=== PATIENT | male | born 1970 | race Caucasian/White ===

== ENCOUNTER 2022-05-03 17:22 | Inpatient (IN) | payer OTHER, SELFPAY ==
--- NOTE | ~2022-05-03 | US_ITS ---
EXAMINATION: US renal BI DATE: 05/05/2022 09:27 INDICATION: Kidney stones. TECHNIQUE: Multiple grayscale and Doppler ultrasound images of the kidneys were obtained. COMPARISON: CT abdomen and pelvis 05/04/22, 11/05/18 FINDINGS: Right kidney measures 12.7 x 7.0 x 7.4 cm. Left kidney measures 9.1 x 5.4 x 5.1 cm. There i s a 3.0 cm cyst in right kidney. Left kidney demonstrates increased echogenicity, consistent with nep hropathy. There is moderate left hydronephrosis. The bladder is distended. IMPRESSION: 1. Moderate left hydronephrosis. Moderate atrophy of left kidney. Reviewed, dictated and finalized at location A. SPRING TRUER
--- NOTE | ~2022-05-03 | XR_ITS ---
EXAM: XR abdomen/kub 1V DATE: 05/06/2022 18:12 HISTORY: Abd discomfort . COMPARISON: None available. FINDINGS: Clear lung bases. Normal bowel gas pattern. No organomegaly. No abnormal abdominal calcifi cation. Regional bones and soft tissues normal for age. IMPRESSION: No radiographic evidence of obstruction or ileus. Reviewed, dictated and finalized at location K. NE TESTING SUPERVISOR
--- NOTE | ~2022-05-03 | CT_ITS ---
EXAMINATION: CT abdomen pelvis w con DATE: 05/04/2022 02:16 INDICATION: Constipation. Generalized abdominal pain. Nausea. TECHNIQUE: Computed tomography (CT) of the abdomen and pelvis was performed with 100 mL Omnipaque 350 intravenous contrast. Automated exposure control and iterative reconstruction technique were employe d. The dose-length product was 234.22 mGy-cm. COMPARISON: CT abdomen and pelvis 11/05/2018 FINDINGS: The visualized portions of the lung bases demonstrate mild atelectasis. No pleural effusion . The heart size is normal. No pericardial effusion. There is a 7 mm cyst in the liver. The gallbladd er, spleen, pancreas, and adrenal glands are normal. There is a 3.4 cm cyst in right kidney. There is a 3 mm stone in right kidney. There is moderate atrophy of left kidney with decreased contrast nephr ogram. There is a 3 mm stone in left kidney. The bladder is distended. There is an anastomosis in the rectosigmoid. There are no dilated loops of bowel. The appendix is not visualized. There are no path ologically enlarged lymph nodes. There is no free intraperitoneal fluid. There is moderate lumbar spo ndylosis. IMPRESSION: 1. Worsened moderate atrophy of left kidney. 2. Small bilateral nonobstructing kidney stones. Reviewed, dictated and finalized at location A. ENT FITTER
[2022-05-03 18:26] VITALS: BP 147/96; PULSE 88; RESP 16; TEMP 36.8; O2SAT 99
--- NOTE | 2022-05-03 23:02 | PC.NURSE ---
called at this time with no answer
--- NOTE | 2022-05-03 23:13 | PC.NURSE ---
patient returned to from outside stating im already on the list patient notified that he had been called for a room and was unable to be found so he was skipped in line. patient upset but educated patient that we request that patient stays in ed for this reason as we will not go out to parking lot to look for him
[2022-05-04 00:48] VITALS: BP 152/99; PULSE 75; RESP 17; TEMP 36.4; O2SAT 100
--- NOTE | 2022-05-04 01:02 | ED.ABDPAIN ---
HPI - Abdominal Pain General Chief Complaint: Abdominal Pain Stated Complaint: abd pain Time Seen by Provider: 05/04/22 00:46 Source: RN notes reviewed History of Present Illness HPI narrative: Patient presents emergency department from home for abdominal pain. Patient states he been having nausea abdominal pain for approximately the past 1 week. States abdominal pain is diffuse throughout the abdomen described as cramping but is worse in the bilateral lower abdomen. States has been associate with constipation. He states he has not had good bowel movements over the past several years and has been taking increased laxatives over the past several weeks with minimal bowel movements he denies any fevers or chills denies any nausea or vomiting states he is also concerned as he has a history of hernias and is concerned that this could be causing his bowel issues Related Data Home Medications Medication Instructions Recorded Confirmed clonazepam 0.5 mg tablet 0.5 mg PO QID 05/19/19 05/19/19 dextroamphetamine-amphetamine 20 20 mg PO BID 05/19/19 05/19/19 mg tablet finasteride 5 mg tablet 5 mg PO DAILY 05/19/19 05/19/19 gabapentin 300 mg capsule 300 mg PO BID 05/19/19 05/19/19 insulin human U-100 NPH-regulr 20 unit subcut DAILY 05/19/19 05/19/19 70-30 mix 100 unit/mL subcutaneous susp (Novolin 70/30 U-100 Insulin) levothyroxine 125 mcg tablet 150 mcg PO DAILY 05/19/19 05/19/19 metformin 1,000 mg tablet 1,000 mg PO BID 05/19/19 05/19/19 tamsulosin 0.4 mg capsule 0.4 mg PO DAILY 05/19/19 05/19/19 triamterene 75 1 tablet PO DAILY 05/19/19 05/19/19 mg-hydrochlorothiazide 50 mg tablet Allergies Allergy/AdvReac Type Severity Reaction Status Date / Time Sulfa (Sulfonamide Allergy Unknown Unknown Verified 05/04/22 00:49 Antibiotics) Review of Systems Review of Systems: Gen.: Denies fevers or chills ENT: Denies congestion Respiratory: Denies shortness of breath or cough CV: Denies chest pain or palpitations GI: See HPI denies burning, urgency, frequency or hematuria Musculoskeletal: Denies back pain or muscle pain Neuro: Denies numbness, tingling, weakness or focal weakness Skin: Denies rash Except as documented, all other systems reviewed and negative [facility] Past Medical History Medical History (Updated 05/04/22 @ 05:36 by Syed Feng DO) Anemia Anxiety Colon cancer Depression Diabetes Hepatitis B Hepatitis C Hypothyroid Inguinal hernia double Psoriatic arthritis Urinary retention Surgical History Surgical History History of colon resection Social History Social History Smoking packs per day: 1 Smoking cigarettes per day: 20.0 Years smoked: 32 Smoking pack-years: 32.00 Smoking status: Current every day smoker Tobacco type: cigarettes Alcohol intake: never Substance use: never Substance use type: does not use Gender identity (if verbalized by the patient): Male Spiritual care concerns: No Agree to blood products: Yes Exam Narrative: APPEARANCE: No acute distress, nontoxic, resting in bed EYES: EOMI HEENT: Normocephalic, atraumatic, OMM RESPIRATORY: No respiratory distress Clear to auscultation bilaterally with no rhonchi wheezing or rales. CARDIOVASCULAR: Regular rate and rhythm without murmurs rubs or gallops. ABDOMINAL: Soft, nondistended diffusely tender to palpation no rebound or guarding MUSCULOSKELETAl: Moves all extremities. No clubbing, cyanosis or edema. NEURO: Awake and alert. Following commands, speech normal, no focal deficits SKIN:: Warm, dry. No rashes lesions or abrasions PSYCHIATRIC: Normal affect/mood, Course Course Emergency Course: Discussed with patient his elevated blood sugars. States he does not regularly take his blood sugar at home states he is on insulin but takes it without checking his blood sugar states he is no longer
[2022-05-04] MEDS: SODIUM CHLORIDE 0.9% IV 1,000 ML 999 ML IV CONT ×2 (01:24→01:51)
[2022-05-04] MEDS: KETOROLAC 30 MG/ML VIAL (*BKC) IV PUSH (01:24)
[2022-05-04 01:28] LABS: Basophils Absolute Auto 0.1 K/mm3 (0.0-0.1); Basophils Percent Auto 0.6 % (0.2-1.2); Eosinophils Absolute Auto 0.2 K/mm3 (0-0.3); Eosinophils Percent Auto 2.4 % (0-4.4); Hematocrit 36.3 % (42.0-52.0); Hemoglobin 12.9 g/dL (14.0-18.0); Immature Granulocyte Absolute 0.04 K/mm3 (0.00-0.031); Immature Granulocyte Percent A 0.5 % (0-0.5); Lymphocytes Absolute Auto 2.05 K/mm3 (0.9-3.2); Lymphocytes Percent Auto 26.2 % (18.3-44.2); Mean Corpuscular HGB Conc 35.5 g/dl (32-36); Mean Corpuscular Hemoglobin 30.4 pg (26-34); Mean Corpuscular Volume 85.6 fl (80-100); Mean Platelet Volume 9.6 fl (7.4-10.4); Monocytes Absolute Auto 0.6 K/mm3 (0.1-0.6); Monocytes Percent Auto 7.4 % (2.6-8.5); Neutrophils Absolute Auto 4.9 K/mm3 (1.3-6.7); Neutrophils Percent Auto 62.9 % (45.5-73.1); Platelet Count Result 263 k/mm3 (150-375); Red Blood Count 4.24 M/mm3 (4.6-6.20); Red Cell Distribution Width 12.7 % (11.5-14.5); White Blood Count 7.8 K/mm3 (4.5-10.0)
[2022-05-04 01:44] LABS: Alanine Aminotransferase 84 U/L (6-50); Alkaline Phosphatase 97 U/L (38-126); Anion Gap 4 mmol/L (8-16); Aspartate Amino Transferase 60 U/L (17-59); Bilirubin,Total 0.8 mg/dL (0.2-1.3); Blood Urea Nitrogen 15 mg/dL (9-20); Calcium 8.5 mg/dL (8.4-10.2); Carbon Dioxide 30 mmol/L (22-30); Chloride 92 mmol/L (98-107); Estimated CRCL calculation 78 ml/min; Estimated Glomerular Filt Rate > 60; Glucose 512 mg/dL (65-110); Lipase 42 U/L (23-300); Potassium 4.3 mmol/L (3.4-5.0); Sodium 126 mmol/L (137-145)
--- NOTE | 2022-05-04 02:00 | PC.NURSE ---
Patient taken to CT via stretcher at this time.
[2022-05-04 03:39] VITALS: BP 152/101; PULSE 70; RESP 17; O2SAT 100
[2022-05-04 03:39] LABS: Add Urine Microscopic? YES; Appearance Urine Clear (Clear); Bilirubin Urine Negative (Negative); Blood Urine Negative (Negative); Color Urine Yellow (Yellow); Glucose Urine UA 3+ mg/dL (Negative); Ketones Urine Negative (Negative); Leukocyte Esterase Ur Negative LEU/UL (Negative); Nitrate Urine Negative (Negative); Protein Urine Negative (Negative); Specific Grav Ur <= 1.005 (1.001-1.035); Urobilinogen Urine 0.2 mg/dL (<2.0)
--- NOTE | 2022-05-04 03:45 | PC.NURSE ---
Bedside glucose is 439.
[2022-05-04 03:47] LABS: Glucose Point of Care 439 mg/dl (65-105)
[2022-05-04 04:12] LABS: Influenza A QL RT-PCR Negative (Negative); Influenza B QL RT-PCR Negative (Negative); SARS-CoV-2 RNA PCR Negative
[2022-05-04 04:16] LABS: RBC Urine 0-2 /hpf (0-2)
--- NOTE | 2022-05-04 05:23 | PC.NURSE ---
Patient bedside glucose is 444.
[2022-05-04 05:25] LABS: Glucose Point of Care 444 mg/dl (65-105)
[2022-05-04] MEDS: INSULIN ASPART (*BKC) 100 UNITS/ML 8 UNITS SUB-Q (05:30)
[2022-05-04] MEDS: MORPHINE SULFATE (*CRX) 2 MG/ML INJ IV PUSH (05:36)
[2022-05-04 06:03] VITALS: BP 161/102; PULSE 63; RESP 18; O2SAT 100
--- NOTE | 2022-05-04 06:15 | ADMGEN ---
This patient, Syed Foster, was admitted to [address] [facility] Surg Room 315-02. Patient/family oriented to hospital policies and general routines including ID bracelet, bed and alarms, visiting hours, pain management, procedures, bathroom and other care routines, personal items, smoking policy, room service/diet, and visiting hours. Information on how to activate the Rapid Response Team has been discussed. Patient/Family are encouraged to report perceived risks to care and to ask questions if they do not understand what they are told or what they should do.
[2022-05-04 06:18] VITALS: BMI 23.6
[2022-05-04 06:31] VITALS: BP 168/105; PULSE 77; RESP 18; TEMP 36.3; O2SAT 100
[2022-05-04] MEDS: SODIUM CHLORIDE 0.9% IV 1,000 ML 125 ML IV CONT ×2 (06:50→16:51)
[2022-05-04 08:23] LABS: Glucose Point of Care 304 mg/dl (65-105)
--- NOTE | 2022-05-04 09:30 | PM.IMHP ---
H&P: HPI History of Present Illness Date/Time: 05/04/22 2918 Chief Complaint: abdominal pain and CVA pain Narrative: patient is a 52-year-old male with a past medical history of colon cancer, diabetes, hypothyroidism, urinary retention who presented to the ED with complaints of abdominal pain radiating to his flank. Patient stated that it all started about 4 days ago. He stated that the pain started in his lower abdomen however was radiating to his flank pain into the CVA area. 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 he stated that the pain was doing okay and he was able to rest and the pain would go way however when he would start to move it would exacerbated more. He was able to get a couple pain pills from a friend of his however they were not effective. Patient also noted that he had not had a bowel movement in 14 days prior to yesterday. He did state that he was able to have a bowel movement yesterday however he just feels very full again today. He noted that he does have 2-3 bowel movements per day. He also stated that he has been having a lot of nausea with no vomiting. He denies any sweats, fevers, chills or chest pain. He did state that he gets short of breath however it does not seem the shortness of breath is anything on normal for him. He also stated that he has been get lightheaded and dizzy lately however he stated it is more so when he stands up too fast. He denies having any urinary issues he did state that he does dribble from time to time and he also stated that he does run back to the bathroom a lot of the times as well. CT of the abdomen and pelvis did show distended bladder along with nonobstructing kidney stones. Did a consult Urology with current findings. Post residual void from nursing was 255 after 350 void. Patient is also very tender with palpation on the bilateral lower quadrants of his abdomen. Glucose upon admission was 512. Patient does have some concern about his glucose however stated that his medications have been recently changed about 2 weeks ago. He also stated that he has always taken hypothyroidism medicine however it was stopped cold turkey About a month ago. Patient is being admitted to the hospitalist service as observation Review of Systems Review of Systems: All systems reviewed & are unremarkable except as noted in HPI and below PMFSH Past Medical History Medical History Acute hyperglycemia Acute hyperkalemia Acute hyponatremia Anemia Anxiety Colon cancer COPD (chronic obstructive pulmonary disease) Depression Diabetes Hepatitis B Hepatitis C Hypothyroid Inguinal hernia double Psoriatic arthritis Urinary retention Surgical History Surgical History History of colon resection Family History Family History Father Marfan syndrome Grandparent Cerebrovascular accident Other Acute myocardial infarction maternal uncle Cancer multiple family members with cancer throughout the family Social History Social History (Updated 05/04/22 @ 14:02 by ZACH Acosta) Social History: patient lives with a friend and his girlfriend. Patient does have 4-5 kids and does have a pit bull at home. He elects his mother Lorena to be his surrogate. patient does partake in illegal drugs and stated that he does what ever is available at that time. Patient wishes to be a full code at this time Smoking packs per day: 1 Smoking cigarettes per day: 20.0 Years smoked: 37 Smoking pack-years: 37.00 Smoking status: Current every day smoker Tobacco type: cigarettes Alcohol intake: never Substance use: current Substance use type: marijuana, crack/cocaine, amphetamines, hallucinogens, opiates, painkillers and other Last use: 05/02/22 speed
[2022-05-04] MEDS: clonazePAM (*CRX) 0.5 MG TABLET PO ×4 (09:55→20:50)
[2022-05-04] MEDS: GABAPENTIN 300 MG CAPSULE PO ×3 (09:57→17:06)
[2022-05-04] MEDS: LOSARTAN POTASSIUM 25 MG TABLET PO (09:57)
[2022-05-04] MEDS: INSULIN ASPART (*BKC) 100 UNITS/ML SUB-Q ×2 (09:57→17:07)
[2022-05-04] MEDS: FINASTERIDE 5 MG TABLET PO (09:57)
[2022-05-04] MEDS: TAMSULOSIN HCL 0.4 MG CAPSULE PO (09:57)
[2022-05-04 11:10] LABS: Hemoglobin A1C 13.7 % (<5.7)
[2022-05-04 11:25] LABS: Hepatitis B Surface Antigen Negative (Negative)
[2022-05-04 11:31] LABS: HAV RESULT Negative (Negative); Hepatitis B Core IgM Result Negative (Negative)
[2022-05-04 12:02] LABS: Hepatitis C Virus Antibody Reactive (Negative)
[2022-05-04] MEDS: MORPHINE SULFATE (*CRX) 2 MG/ML INJ 1 MG IV PUSH (12:04)
[2022-05-04 12:08] LABS: Glucose Point of Care 194 mg/dl (65-105)
[2022-05-04 12:15] LABS: Creatinine Urine 36.3 mg/dL; Urea Random Urine 257 MG/DL
[2022-05-04 12:20] LABS: Barbiturate Screen Urine Negative (Negative); Benzodiazepines Screen Urine Negative (Negative); Sodium Urine Random 219 meq/L
[2022-05-04 12:22] LABS: Cannabinoid Screen Urine Positive (Negative); Cocaine Screen Urine Negative (Negative); Methadone Screen Urine Negative (Negative); Opiate Screen Urine Positive (Negative); Phencyclidine Screen Urine Negative (Negative)
[2022-05-04 12:53] LABS: Amphetamine Screen Urine Positive (Negative)
--- NOTE | 2022-05-04 13:59 | WPDUROPN2 ---
Progress Note: A&P Assessment and Plan (1) BPH (benign prostatic hyperplasia): Code(s): N40.0 - Benign prostatic hyperplasia without lower urinary tract symptoms Status: Acute Assessment and Plan: 52M with BPH and uncontrolled diabetes admitted for abdominal pain consulted for PVR above 200 though he did void 350 and small nonobstructing kidney stones. Cr 1, A1C over 13. UA with no signs of infection. - Recommend continuing to monitor patient's PVR and is voiding. If PVR is over 250-300, or if patient unable to void for over 4-6 hours would have a low threshold to consider lord catheter placement for retention with a 18F coude catheter. - No intervention required for small nonobstructing renal stones and chronic atrophic kidney. Subjective Subjective Date/Time Seen: 05/04/22 13:59 Objective Data Vital Signs Vital Signs: Vital Signs - 24 hr 05/03/22 18:26 05/04/22 00:48 05/04/22 03:39 Temperature 36.8 C 36.4 C Pulse Rate 88 75 70 Respiratory Rate 16 17 17 Blood Pressure 147/96 H 152/99 H 152/101 H Pulse Oximetry 99 100 100 Oxygen Delivery Room Air 05/04/22 06:03 05/04/22 06:31 05/04/22 08:20 Temperature 36.3 C L Pulse Rate 63 77 Respiratory Rate 18 18 Blood Pressure 161/102 H 168/105 H Pulse Oximetry 100 100 Oxygen Delivery Room Air Intake/Output Intake/Output: Intake & Output 05/01/22 05/02/22 05/03/22 05/04/22 23:59 23:59 23:59 23:59 Intake Total 2360 Balance 2360 Meds/Results Medications: Active Medications Generic Name Dose Route Start Last Admin Trade Name Freq PRN Reason Stop Dose Admin Acetaminophen 1,000 mg 05/04/22 09:28 Acetaminophen 500 Mg Tablet PO Q6H PRN Mild Pain (1-3) or Fever Hydrocodone Bitart/Acetaminophen 1 tab 05/04/22 09:28 Hydrocodone/Acetaminophen (*Crx) 5-325 Mg Tablet PO Q6H PRN Pain Rated 4-6 Clonazepam 0.5 mg 05/04/22 09:00 05/04/22 13:43 Clonazepam (*Crx) 0.5 Mg Tablet PO 0.5 mg QID KENIA Administration Dextrose 12.5 gm 05/04/22 09:28 Dextrose 50% 25 Gm/50 Ml Syringe IV PUSH PRN PRN Hypoglycemia Protocol Finasteride 5 mg 05/04/22 09:00 05/04/22 09:57 Finasteride 5 Mg Tablet PO 5 mg DAILY KENIA Administration Gabapentin 300 mg 05/04/22 09:00 05/04/22 13:42 Gabapentin 300 Mg Capsule PO 300 mg TID KENIA Administration Glucagon 1 mg 05/04/22 09:28 Glucagon For Inj 1 Mg Vial IM PRN PRN Hypoglycemia Protocol Glucose 15 gm 05/04/22 09:28 Glucose Oral Gel 15 Gm Of Glucse In 37.5 Gm Tube PO PRN PRN Hypoglycemia Protocol Hydralazine HCl 10 mg 05/04/22 09:28 Hydralazine Hcl 20 Mg/Ml Vial IV PUSH Q8H PRN Blood Pressure - High Sodium Chloride 1,000 mls @ 125 mls/hr 05/04/22 05:30 05/04/22 06:51 Normal Saline Iv IV CONT 125 mls/hr .Q8H KENIA Infusion Dextrose 1,000 mls @ 100 mls/hr 05/04/22 09:28 Dextrose 5% 1,000 Ml IVPB PRN PRN Hypoglycemia Protocol Insulin Aspart 4 - 8 units 05/04/22 12:00 05/04/22 12:07 Insulin Aspart (*Bkc) 100 Units/Ml SUB-Q Not Given TIDWM [facility] Protocol Insulin Glargine 25 units 05/04/22 21:00 Insulin Glargine (*Bkc) 100 Units/Ml SUB-Q HS [facility] Insulin Human NPH 11 units 05/04/22 16:30 Insulin Human Nph (*Bkc) 100 Units/Ml 0.15 units/kg (11 units) SUB-Q BIDAC KENIA Losartan Potassium 25 mg 05/04/22 09:00 05/04/22 09:57 Losartan Potassium 25 Mg Tablet PO 25 mg DAILY KENIA Administration Morphine Sulfate 1 mg 05/04/22 09:28 05/04/22 12:04 Morphine Sulfate (*Crx) 2 Mg/Ml Inj IV PUSH 1 mg Q4H PRN Administration Pain Rated 7-10 Sitagliptin Phosphate 100 mg 05/04/22 09:00 05/04/22 09:57 Sitagliptin 100 Mg Tablet PO 100 mg DAILY KENIA Administration Tamsulosin HCl 0.4 mg 05/04/22 09:00 05/04/22 09:57 Tamsulosin Hcl 0.4 Mg Capsule PO 0.4 mg DAILY KENIA Admin
[2022-05-04 14:07] VITALS: BP 125/82; PULSE 77; RESP 18; TEMP 36.6; O2SAT 99
[2022-05-04 15:31] VITALS: BMI 23.6
[2022-05-04] MEDS: INSULIN HUMAN NPH (*BKC) 100 UNITS/ML 11 UNITS SUB-Q (17:03)
[2022-05-04] MEDS: SIMETHICONE 80 MG TAB.CHEW PO ×2 (17:11→20:50)
[2022-05-04 17:21] LABS: Glucose Point of Care 318 mg/dl (65-105)
[2022-05-04] MEDS: INSULIN GLARGINE (*BKC) 100 UNITS/ML 25 UNITS SUB-Q (20:50)
[2022-05-04 20:52] LABS: Glucose Point of Care 171 mg/dl (65-105)
[2022-05-04 21:46] VITALS: BP 135/96; PULSE 73; RESP 14; TEMP 36.2; O2SAT 12
[2022-05-05] MEDS: SODIUM CHLORIDE 0.9% IV 1,000 ML 125 ML IV CONT ×3 (00:58→19:45)
[2022-05-05 05:49] VITALS: BP 139/89; PULSE 66; RESP 14; TEMP 36.2; O2SAT 98
[2022-05-05 06:43] LABS: Basophils Absolute Auto 0.1 K/mm3 (0.0-0.1); Basophils Percent Auto 0.5 % (0.2-1.2); Eosinophils Absolute Auto 0.3 K/mm3 (0-0.3); Eosinophils Percent Auto 2.7 % (0-4.4); Hematocrit 38.4 % (42.0-52.0); Immature Granulocyte Absolute 0.07 K/mm3 (0.00-0.031); Immature Granulocyte Percent A 0.6 % (0-0.5); Lymphocytes Percent Auto 17.4 % (18.3-44.2); Mean Corpuscular HGB Conc 36.5 g/dl (32-36); Mean Corpuscular Hemoglobin 30.2 pg (26-34); Mean Corpuscular Volume 82.8 fl (80-100); Mean Platelet Volume 9.4 fl (7.4-10.4); Monocytes Absolute Auto 0.8 K/mm3 (0.1-0.6); Monocytes Percent Auto 6.6 % (2.6-8.5); Neutrophils Absolute Auto 9.1 K/mm3 (1.3-6.7); Neutrophils Percent Auto 72.2 % (45.5-73.1); Platelet Count Result 265 k/mm3 (150-375); Red Blood Count 4.64 M/mm3 (4.6-6.20); Red Cell Distribution Width 12.6 % (11.5-14.5); White Blood Count 12.6 K/mm3 (4.5-10.0)
[2022-05-05 06:54] LABS: Alanine Aminotransferase 76 U/L (6-50); Albumin Level 3.4 g/dL (3.5-5.1); Alkaline Phosphatase 87 U/L (38-126); Anion Gap 2 mmol/L (8-16); Aspartate Amino Transferase 56 U/L (17-59); Bilirubin,Total 0.7 mg/dL (0.2-1.3); Blood Urea Nitrogen 10 mg/dL (9-20); Calcium 8.3 mg/dL (8.4-10.2); Carbon Dioxide 29 mmol/L (22-30); Chloride 99 mmol/L (98-107); Estimated CRCL calculation 96 ml/min; Estimated Glomerular Filt Rate > 60; Glucose 91 mg/dL (65-110); Magnesium 1.7 mg/dL (1.6-2.3); Potassium 3.5 mmol/L (3.4-5.0); Sodium 130 mmol/L (137-145)
[2022-05-05 08:12] LABS: Glucose Point of Care 133 mg/dl (65-105)
[2022-05-05] MEDS: INSULIN HUMAN NPH (*BKC) 100 UNITS/ML 11 UNITS SUB-Q (08:21)
[2022-05-05] MEDS: FINASTERIDE 5 MG TABLET PO (08:24)
[2022-05-05] MEDS: GABAPENTIN 300 MG CAPSULE PO ×3 (08:24→17:10)
[2022-05-05] MEDS: TAMSULOSIN HCL 0.4 MG CAPSULE PO (08:24)
[2022-05-05] MEDS: LOSARTAN POTASSIUM 25 MG TABLET PO (08:24)
[2022-05-05] MEDS: clonazePAM (*CRX) 0.5 MG TABLET PO ×4 (08:26→19:53)
[2022-05-05] MEDS: SIMETHICONE 80 MG TAB.CHEW PO ×4 (08:26→19:53)
[2022-05-05 08:34] LABS: Free T4 Free Thyroxine Reflex 0.37 ng/dL (0.78-2.19)
[2022-05-05] MEDS: LEVOTHYROXINE SODIUM 100 MCG TABLET PO (11:27)
--- NOTE | 2022-05-05 11:30 | PM.IMPN ---
Progress Note: A&P Assessment and Plan (1) Acute hyponatremia: Code(s): E87.1 - Hypo-osmolality and hyponatremia Status: Acute Assessment and Plan: sodium 126 upon admission, however corrected sodium was 133-136 Current sodium today is 130 normal saline at 125 mils an hour Continue to trend labs only increased by 6 points ever 24 hour. urine sodium 219 Hold HCTZ for now (2) Hydronephrosis: Code(s): N13.30 - Unspecified hydronephrosis Status: Acute Assessment and Plan: renal ultrasound did show some left hydronephrosis could be from the atrophy consider placement of urinary catheter urology consulted PRV ordered BID (3) Diabetes: Code(s): E11.9 - Type 2 diabetes mellitus without complications Status: Acute Assessment and Plan: Glucose on arrival 512 Currenly 91 NPH given along with aspart 05/04/22 Accu cheks, ISS, hypoglycemia protocol Trend labs continue lantus 25 units at HS Start aspart 8 units with meals Continue home Januvia Patient also reported taking the detemir 30 units BID not once a day (4) Abdominal pain, lower: Code(s): R10.30 - Lower abdominal pain, unspecified Status: Acute Assessment and Plan: abdomen and pelvis CT does showed nonobstructing kidney stones, distended bladder reported significant constipation Start Miralax and Colace CT also shows a lot of gas, start simethicone Pain medications on board Bladder was also noted to be distended could be contributing (5) BPH (benign prostatic hyperplasia): Code(s): N40.0 - Benign prostatic hyperplasia without lower urinary tract symptoms Status: Acute Assessment and Plan: CT noted bladder distension Continue home tamsulosin and finasteride Urology consulted Trend urine output PRV was 255ml after a 300ml void PRV ordered BID Urology instructed low threshold for a urinary catheter consider catheter if indicated (6) Kidney stones: Code(s): N20.0 - Calculus of kidney Status: Acute Assessment and Plan: CT noted bilateral kidney stones Urology consulted for further support Continue to trend urine output Adjust therapy as indicated (7) Hypothyroid: Qualifiers: Hypothyroidism type: unspecified Qualified Code(s): E03.9 - Hypothyroidism, unspecified Code(s): E03.9 - Hypothyroidism, unspecified Status: Chronic Assessment and Plan: TSH 95.800, T4 0.37 Will start medications at 100mcg per day will need a recheck in 6 weeks (8) Hypertension: Code(s): I10 - Essential (primary) hypertension Status: Acute Assessment and Plan: Current BP is 139/89 Holding the HCTZ for hyponatremia Hydralazine PRN Trend BP Adjust therapy as indicated (9) Tobacco dependence: Code(s): F17.200 - Nicotine dependence, unspecified, uncomplicated Status: Acute Assessment and Plan: Patch and gum available Smoking cessation provided Time Spent With Patient Time with patient: Greater than 35 minutes Subjective Date/time seen: 05/05/221129 Interval history: 05/05/221129 Patient stated that he is doing the same. He also stated that his urination has been little different as well. He stated that his stream is not as strong however he is still getting some of the urine out. He still complaining of abdominal pain and flank pain which she rates at 8/10. He denies any chest pain or shortness of breath, nausea vomiting. He denies having a bowel movement yet have started him on stool softeners. He also claims that he is passing gas but not that much. Will get another PRV for further assessment of retention. 05/04/22? 3330 ?patient is a 52-year-old male with a past medical history of colon cancer, diabete
--- NOTE | 2022-05-05 11:30 | P.PNIM_ITS ---
Progress Note: A&P Assessment and Plan (1) Acute hyponatremia: Code(s): E87.1 - Hypo-osmolality and hyponatremia Status: Acute Assessment and Plan: * sodium 126 upon admission, however corrected sodium was 133-136 * Current sodium today is 130 * normal saline at 125 mils an hour * Continue to trend labs * only increased by 6 points ever 24 hour. * urine sodium 219 * Hold HCTZ for now (2) Hydronephrosis: Code(s): N13.30 - Unspecified hydronephrosis Status: Acute Assessment and Plan: * renal ultrasound did show some left hydronephrosis * could be from the atrophy * consider placement of urinary catheter * urology consulted * PRV ordered BID (3) Diabetes: Code(s): E11.9 - Type 2 diabetes mellitus without complications Status: Acute Assessment and Plan: * Glucose on arrival 512 * Currenly 91 * NPH given along with aspart 05/04/22 * Accu cheks, ISS, hypoglycemia protocol * Trend labs * continue lantus 25 units at HS * Start aspart 8 units with meals * Continue home Januvia * Patient also reported taking the detemir 30 units BID not once a day (4) Abdominal pain, lower: Code(s): R10.30 - Lower abdominal pain, unspecified Status: Acute Assessment and Plan: * abdomen and pelvis CT does showed nonobstructing kidney stones, distended bladder * reported significant constipation * Start Miralax and Colace * CT also shows a lot of gas, start simethicone * Pain medications on board * Bladder was also noted to be distended could be contributing (5) BPH (benign prostatic hyperplasia): Code(s): N40.0 - Benign prostatic hyperplasia without lower urinary tract symptoms Status: Acute Assessment and Plan: * CT noted bladder distension * Continue home tamsulosin and finasteride * Urology consulted * Trend urine output * PRV was 255ml after a 300ml void * PRV ordered BID * Urology instructed low threshold for a urinary catheter * consider catheter if indicated (6) Kidney stones: Code(s): N20.0 - Calculus of kidney Status: Acute Assessment and Plan: * CT noted bilateral kidney stones * Urology consulted for further support * Continue to trend urine output * Adjust therapy as indicated (7) Hypothyroid: Qualifiers: Hypothyroidism type: unspecified Qualified Code(s): E03.9 - Hypothyroidism, unspecified Code(s): E03.9 - Hypothyroidism, unspecified Status: Chronic Assessment and Plan: * TSH 95.800, T4 0.37 * Will start medications at 100mcg per day * will need a recheck in 6 weeks (8) Hypertension: Code(s): I10 - Essential (primary) hypertension Status: Acute Assessment and Plan: * Current BP is 139/89 * Holding the HCTZ for hyponatremia * Hydralazine PRN * Trend BP * Adjust therapy as indicated (9) Tobacco dependence: Code(s): F17.200 - Nicotine dependence, unspecified, uncomplicated Status: Acute Assessment and Plan: * Patch and gum available * Smoking cessation provided Time Spent With Patient Time with patient: Greater than 35 minutes Subjective Date/time seen:
[2022-05-05 11:50] LABS: Glucose Point of Care 79 mg/dl (65-105)
[2022-05-05] MEDS: HYDROcodone/acetaminophen (*CRX) 5-325 MG TABLET 1 TAB PO (11:57)
[2022-05-05 14:00] VITALS: BP 134/91; PULSE 69; RESP 16; TEMP 36.6; O2SAT 99
[2022-05-05 17:12] LABS: Glucose Point of Care 63 mg/dl (65-105)
[2022-05-05 18:01] LABS: Glucose Point of Care 109 mg/dl (65-105)
[2022-05-05] MEDS: MORPHINE SULFATE (*CRX) 2 MG/ML INJ 1 MG IV PUSH (19:53)
[2022-05-05] MEDS: INSULIN GLARGINE (*BKC) 100 UNITS/ML 25 UNITS SUB-Q (19:53)
[2022-05-05 20:03] LABS: Glucose Point of Care 159 mg/dl (65-105)
[2022-05-05 22:00] VITALS: BP 120/97; PULSE 96; RESP 18; TEMP 36.1; O2SAT 100
[2022-05-05 23:29] VITALS: O2SAT 99
[2022-05-06] MEDS: MORPHINE SULFATE (*CRX) 2 MG/ML INJ 1 MG IV PUSH ×3 (00:19→18:09)
[2022-05-06] MEDS: SODIUM CHLORIDE 0.9% IV 1,000 ML 125 ML IV CONT ×2 (05:17→13:22)
[2022-05-06] MEDS: LEVOTHYROXINE SODIUM 100 MCG TABLET PO (05:17)
--- NOTE | 2022-05-06 05:50 | PC.NURSE ---
Pt. has voided without telling nursing staff that he voided. Pt. educated twice on the importance of telling nursing staff he voided so he can be bladder scanned for PVR.
[2022-05-06 06:00] VITALS: BP 149/99; PULSE 71; RESP 16; TEMP 36.7; O2SAT 99
[2022-05-06 06:34] LABS: Basophils Absolute Auto 0.1 K/mm3 (0.0-0.1); Basophils Percent Auto 0.6 % (0.2-1.2); Eosinophils Absolute Auto 0.4 K/mm3 (0-0.3); Eosinophils Percent Auto 4.6 % (0-4.4); Hematocrit 38.8 % (42.0-52.0); Hemoglobin 13.7 g/dL (14.0-18.0); Immature Granulocyte Absolute 0.05 K/mm3 (0.00-0.031); Immature Granulocyte Percent A 0.5 % (0-0.5); Lymphocytes Absolute Auto 2.43 K/mm3 (0.9-3.2); Lymphocytes Percent Auto 25.7 % (18.3-44.2); Mean Corpuscular HGB Conc 35.3 g/dl (32-36); Mean Corpuscular Hemoglobin 30.3 pg (26-34); Mean Corpuscular Volume 85.8 fl (80-100); Mean Platelet Volume 9.6 fl (7.4-10.4); Monocytes Absolute Auto 0.7 K/mm3 (0.1-0.6); Monocytes Percent Auto 7.7 % (2.6-8.5); Neutrophils Absolute Auto 5.7 K/mm3 (1.3-6.7); Neutrophils Percent Auto 60.9 % (45.5-73.1); Platelet Count Result 255 k/mm3 (150-375); Red Blood Count 4.52 M/mm3 (4.6-6.20); Red Cell Distribution Width 12.7 % (11.5-14.5); White Blood Count 9.4 K/mm3 (4.5-10.0)
[2022-05-06 06:52] LABS: Alanine Aminotransferase 80 U/L (6-50); Albumin Level 3.7 g/dL (3.5-5.1); Alkaline Phosphatase 83 U/L (38-126); Anion Gap 2 mmol/L (8-16); Aspartate Amino Transferase 76 U/L (17-59); Bilirubin,Total 0.7 mg/dL (0.2-1.3); Blood Urea Nitrogen 13 mg/dL (9-20); Calcium 8.6 mg/dL (8.4-10.2); Carbon Dioxide 32 mmol/L (22-30); Chloride 100 mmol/L (98-107); Estimated CRCL calculation 78 ml/min; Estimated Glomerular Filt Rate > 60; Glucose 176 mg/dL (65-110); Magnesium 1.8 mg/dL (1.6-2.3); Potassium 4.6 mmol/L (3.4-5.0); Sodium 134 mmol/L (137-145)
[2022-05-06 08:26] LABS: Glucose Point of Care 226 mg/dl (65-105)
[2022-05-06] MEDS: GABAPENTIN 300 MG CAPSULE PO ×3 (08:50→17:11)
[2022-05-06] MEDS: clonazePAM (*CRX) 0.5 MG TABLET PO ×4 (08:51→20:45)
[2022-05-06] MEDS: FINASTERIDE 5 MG TABLET PO (08:51)
[2022-05-06] MEDS: INSULIN ASPART (*BKC) 100 UNITS/ML SUB-Q ×3 (08:51→17:10)
[2022-05-06] MEDS: TAMSULOSIN HCL 0.4 MG CAPSULE PO (08:51)
[2022-05-06] MEDS: SIMETHICONE 80 MG TAB.CHEW PO ×4 (08:51→20:40)
[2022-05-06] MEDS: LOSARTAN POTASSIUM 25 MG TABLET PO (08:51)
[2022-05-06] MEDS: HYDROcodone/acetaminophen (*CRX) 5-325 MG TABLET 1 TAB PO ×2 (08:57→20:45)
[2022-05-06 10:30] VITALS: BMI 23.6
[2022-05-06 11:43] LABS: Glucose Point of Care 197 mg/dl (65-105)
[2022-05-06 13:59] VITALS: BP 141/95; PULSE 71; RESP 16; TEMP 36.8; O2SAT 100
[2022-05-06 15:03] LABS: Osmolality, Urine 668 mOsm/kg (50-1200)
--- NOTE | 2022-05-06 16:38 | PM.IMPN ---
Progress Note: A&P Assessment and Plan (1) Abdominal pain, lower: Code(s): R10.30 - Lower abdominal pain, unspecified Status: Acute Assessment and Plan: patient complains of severe lower abdominal pain. CT of the abdomen/ pelvis reviewed on small bilateral nonobstructing kidney stones, no dilated loops of bowel, no lymphadenopathy or free fluid. nonobstructing stones not likely to be etiology for pain. No additional findings to explain symptoms on CT. Patient does complain of constipation, therefore will begin bowel regimen. Will evaluate abdominal x-ray (2) Hydronephrosis: Code(s): N13.30 - Unspecified hydronephrosis Status: Acute Assessment and Plan: renal ultrasound revealed moderate left hydronephrosis and moderate atrophy of left kidney. Appreciate urology consultation. Continue to monitor postvoid residual. (3) Diabetes: Code(s): E11.9 - Type 2 diabetes mellitus without complications Status: Acute Assessment and Plan: Poorly controlled. A1c is 13.7. Suspect patient is poorly compliant to medication regimen, though he states he takes detemir twice a day at home. Continue Accu-Cheks, sliding scale insulin, and hypoglycemic protocol. NovoLog 5 units scheduled with meals and Lantus 25 units q.h.s.. Continue home Januvia. Consult to clinical trial educator greatly appreciated. (4) Acute hyponatremia: Code(s): E87.1 - Hypo-osmolality and hyponatremia Status: Acute Assessment and Plan: Resolved at appropriate rate. Sodium 134 today. Continue to monitor (5) BPH (benign prostatic hyperplasia): Code(s): N40.0 - Benign prostatic hyperplasia without lower urinary tract symptoms Status: Acute Assessment and Plan: appreciate urology consultation. Continue home tamsulosin and finasteride. Monitor postvoid residual. (6) Kidney stones: Code(s): N20.0 - Calculus of kidney Status: Acute Assessment and Plan: Nonobstructing stones noted on CT, no intervention required (7) Hypothyroid: Qualifiers: Hypothyroidism type: unspecified Qualified Code(s): E03.9 - Hypothyroidism, unspecified Code(s): E03.9 - Hypothyroidism, unspecified Status: Chronic Assessment and Plan: TSH markedly elevated at 95.8 with T4 0.37. Levothyroxine initiated at 100 mcg daily. Will need recheck in 6 weeks as an outpatient with up titration as needed (8) Hypertension: Code(s): I10 - Essential (primary) hypertension Status: Acute Assessment and Plan: blood pressure is stable. Continue home losartan. HCTZ on hold given hyponatremia (9) Tobacco dependence: Code(s): F17.200 - Nicotine dependence, unspecified, uncomplicated Status: Acute Assessment and Plan: continue to encourage smoking cessation (10) Colon cancer: Code(s): C18.9 - Malignant neoplasm of colon, unspecified Status: Acute Assessment and Plan: Patient reports no recent follow-up. Has not been evaluated by Oncology in quite some time and in fact cannot recall the name of his oncologist. He will need prompt outpatient evaluation and likely will require repeat colonoscopy. Subjective Date/time seen: 05/06/22 16:38 Interval history: date of service: 05/06/2022 patient is seen in follow-up for urinary retention. He complains today of severe abdominal and flank pain that he states is unbearable. states it feels as though someone is squeezing and twisting the muscles in his abdomen and sides. It is worse just below the umbilicus. He denies any suprapubic pain. Pain is worse with movement and does improve with he pain medication. He is still able to tolerate his diet. He has nausea but no emesis. Endorses bloating. Reports last bowel movement was about 3 days ago. He is passing flatus. He denies fever or chills. He endorses left back pain. Antonio
[2022-05-06 16:59] LABS: Glucose Point of Care 114 mg/dl (65-105)
[2022-05-06] MEDS: polyethylene glycoL 3350 17 GM POWD.PACK PO (18:05)
[2022-05-06] MEDS: DOCUSATE SODIUM 100 MG CAPSULE PO (20:40)
[2022-05-06] MEDS: INSULIN GLARGINE (*BKC) 100 UNITS/ML 25 UNITS SUB-Q (20:44)
[2022-05-06 22:00] VITALS: BP 119/89; PULSE 95; RESP 18; TEMP 36.3; O2SAT 99
[2022-05-07] MEDS: MORPHINE SULFATE (*CRX) 2 MG/ML INJ 1 MG IV PUSH ×3 (00:12→14:36)
--- NOTE | 2022-05-07 05:24 | PC.NURSE ---
Patient urinated 650 ML before report was given. Was unable to do bladder scan at this time. Patient has not urinated the rest of shift. Reminded him to let staff know if he urinates so he can be bladder scanned.
[2022-05-07 06:00] VITALS: BP 138/96; PULSE 78; RESP 18; TEMP 36.2; O2SAT 100
[2022-05-07] MEDS: LEVOTHYROXINE SODIUM 100 MCG TABLET PO (06:37)
[2022-05-07 06:48] LABS: Hematocrit 39.4 % (42.0-52.0); Hemoglobin 14.2 g/dL (14.0-18.0); Mean Corpuscular Hemoglobin 30.2 pg (26-34); Mean Corpuscular Volume 83.8 fl (80-100); Mean Platelet Volume 9.5 fl (7.4-10.4); Platelet Count Result 264 k/mm3 (150-375); Red Cell Distribution Width 12.5 % (11.5-14.5); White Blood Count 8.7 K/mm3 (4.5-10.0)
[2022-05-07 07:06] LABS: Anion Gap 4 mmol/L (8-16); Blood Urea Nitrogen 12 mg/dL (9-20); Calcium 8.8 mg/dL (8.4-10.2); Carbon Dioxide 33 mmol/L (22-30); Chloride 94 mmol/L (98-107); Estimated CRCL calculation 78 ml/min; Estimated Glomerular Filt Rate > 60; Glucose 232 mg/dL (65-110); Potassium 4.2 mmol/L (3.4-5.0); Sodium 131 mmol/L (137-145)
[2022-05-07 08:31] LABS: Glucose Point of Care 206 mg/dl (65-105)
[2022-05-07] MEDS: DOCUSATE SODIUM 100 MG CAPSULE PO ×2 (08:44→21:25)
[2022-05-07] MEDS: GABAPENTIN 300 MG CAPSULE PO ×3 (08:44→16:49)
[2022-05-07 08:45] VITALS: PULSE 78; RESP 18; O2SAT 100
[2022-05-07] MEDS: TAMSULOSIN HCL 0.4 MG CAPSULE PO (08:45)
[2022-05-07] MEDS: polyethylene glycoL 3350 17 GM POWD.PACK PO (08:45)
[2022-05-07] MEDS: FINASTERIDE 5 MG TABLET PO (08:45)
[2022-05-07] MEDS: SIMETHICONE 80 MG TAB.CHEW PO ×4 (08:45→21:25)
[2022-05-07] MEDS: LOSARTAN POTASSIUM 25 MG TABLET PO (08:45)
[2022-05-07] MEDS: INSULIN ASPART (*BKC) 100 UNITS/ML SUB-Q ×3 (08:55→17:31)
[2022-05-07] MEDS: clonazePAM (*CRX) 0.5 MG TABLET PO ×4 (10:18→21:25)
[2022-05-07 11:30] LABS: Kappa\\Lambda Light Chains 1.12 (0.26-1.65); Lambda Light Chain 29.5 mg/L (5.7-26.3)
[2022-05-07 11:58] LABS: Glucose Point of Care 66 mg/dl (65-105)
[2022-05-07 12:36] LABS: Glucose Point of Care 77 mg/dl (65-105)
[2022-05-07 14:20] VITALS: BP 103/81; PULSE 97; RESP 14; TEMP 36.3; O2SAT 100
--- NOTE | 2022-05-07 14:49 | PM.IMPN ---
Progress Note: A&P Assessment and Plan (1) Abdominal pain, lower: Code(s): R10.30 - Lower abdominal pain, unspecified Status: Acute Assessment and Plan: Patient complains of severe lower abdominal pain. CT of the abdomen/ pelvis revealed only small bilateral nonobstructing kidney stones, no dilated loops of bowel, no lymphadenopathy or free fluid. nonobstructing stones not likely to be etiology for pain. No additional findings to explain symptoms on CT. Patient does complain of constipation, however no evidence on imaging. Continue with bowel regimen. KUB without obstruction or ileus. Lipase within normal limits. proceed with Gastroenterology consultation for further recommendations, patient may benefit from colonoscopy given persistent pain and history of colon cancer (2) Hydronephrosis: Code(s): N13.30 - Unspecified hydronephrosis Status: Acute Assessment and Plan: renal ultrasound revealed moderate left hydronephrosis and moderate atrophy of left kidney. Appreciate urology consultation. Continue to monitor postvoid residual. (3) Diabetes: Code(s): E11.9 - Type 2 diabetes mellitus without complications Status: Acute Assessment and Plan: Poorly controlled. A1c is 13.7. Suspect patient is poorly compliant to medication regimen, though he states he takes detemir twice a day at home. Continue Accu-Cheks, sliding scale insulin, and hypoglycemic protocol. NovoLog 5 units scheduled with meals and Lantus 20 units q.h.s.. Continue home Januvia. Consult to kennel technician greatly appreciated. (4) Acute hyponatremia: Code(s): E87.1 - Hypo-osmolality and hyponatremia Status: Acute Assessment and Plan: Resolved at appropriate rate. Sodium 131 today. Continue to monitor (5) BPH (benign prostatic hyperplasia): Code(s): N40.0 - Benign prostatic hyperplasia without lower urinary tract symptoms Status: Acute Assessment and Plan: appreciate urology consultation. Continue home tamsulosin and finasteride. Monitor postvoid residual. (6) Kidney stones: Code(s): N20.0 - Calculus of kidney Status: Acute Assessment and Plan: Nonobstructing stones noted on CT, no intervention required (7) Hypothyroid: Qualifiers: Hypothyroidism type: unspecified Qualified Code(s): E03.9 - Hypothyroidism, unspecified Code(s): E03.9 - Hypothyroidism, unspecified Status: Chronic Assessment and Plan: TSH markedly elevated at 95.8 with T4 0.37. Levothyroxine initiated at 100 mcg daily. Will need recheck in 6 weeks as an outpatient with up titration as needed (8) Hypertension: Code(s): I10 - Essential (primary) hypertension Status: Acute Assessment and Plan: blood pressure is stable. Continue home losartan. HCTZ on hold given hyponatremia (9) Tobacco dependence: Code(s): F17.200 - Nicotine dependence, unspecified, uncomplicated Status: Acute Assessment and Plan: continue to encourage smoking cessation (10) Colon cancer: Code(s): C18.9 - Malignant neoplasm of colon, unspecified Status: Acute Assessment and Plan: Patient reports no recent follow-up. Has not been evaluated by Oncology in quite some time and in fact cannot recall the name of his oncologist. will evaluate LDH and CEA. Patient will need outpatient oncology follow-up Subjective Date/time seen: 05/07/22 14:49 Interval history: date of service: 05/07/2022 patient is seen in follow-up for Abdominal pain and urinary retention. Patient continues to complain of 8/10 abdominal pain just below the umbilicus and in the right and left flanks. Describes this as a twisting sensation in is worse with movement. He denies nausea or vomiting and is able to tolerate his diet. He is passing flatus but has not had a bowel movement. He has been able to
[2022-05-07 15:40] LABS: Alanine Aminotransferase 72 U/L (6-50); Albumin Level 3.6 g/dL (3.5-5.1); Alkaline Phosphatase 79 U/L (38-126); Aspartate Amino Transferase 62 U/L (17-59); Bilirubin,Total 0.4 mg/dL (0.2-1.3); Lactate Dehydrogenase 167 U/L (120-246)
[2022-05-07 16:11] LABS: Carcinoembryonic Antigen 4.4 ng/mL (0.0-3.0)
[2022-05-07 16:46] LABS: Lactic Acid Reflex 1.7 mmol/L (0.7-2.0)
[2022-05-07 16:48] LABS: Lipase 38 U/L (23-300)
[2022-05-07] MEDS: HYDROcodone/acetaminophen (*CRX) 5-325 MG TABLET 1 TAB PO (16:50)
--- NOTE | 2022-05-07 16:53 | WPDGICN ---
Assessment and Plan Assessment and plan (1) Abdominal pain, lower: Code(s): R10.30 - Lower abdominal pain, unspecified Status: Acute Assessment and Plan: he was found have a kidney stone. The stone is in the renal pelvis and is felt not to be responsible for his symptoms. Neurology is monitoring his bladder function. Nursing tells me that he recently passed [address] scan shows: The visualized portions of the lung bases demonstrate mild atelectasis. No pleural effusion. The heart size is normal. No pericardial effusion. There is a 7 mm cyst in the liver. The gallbladder, spleen, pancreas, and adrenal glands are normal. There is a 3.4 cm cyst in right kidney. There is a 3 mm stone in right kidney. There is moderate atrophy of left kidney with decreased contrast nephrogram. There is a 3 mm stone in left kidney. The bladder is distended. There is an anastomosis in the rectosigmoid. There are no dilated loops of bowel. The appendix is not visualized. There are no pathologically enlarged lymph nodes. There is no free intraperitoneal fluid. There is moderate lumbar spondylosis. (2) Diabetes: Code(s): E11.9 - Type 2 diabetes mellitus without complications Status: Acute Assessment and Plan: he states that he was found to be diabetic about time he had colon cancer surgery. He states that when he got out of long term that he was given a syringe and some needles but no instructions. He states that he does take insulin from time to time. He has not been following any particular diet. (3) Kidney stones: Code(s): N20.0 - Calculus of kidney Status: Acute Assessment and Plan: He has been evaluated by Urology (4) Colon cancer: Code(s): C18.9 - Malignant neoplasm of colon, unspecified Status: Acute Assessment and Plan: he had resection 7 years ago. He states that he had subsequent colonoscopies at [facility] and believes that they were all okay. Plan I am not sure what would be causing his pain. This feeling that he is constipated suggest that he has inflammation in the colon or intestines. His pain is whether generalized for something like Crohn's disease. Nevertheless the will obtain stool specimens for calprotectin. I will check markers for inflammatory bowel disease as well. GI Consult Note Consult date/time: 05/07/22 16:53 HPI: Syed Foster is a 52 year old male was admitted 3 days ago when he presented to the emergency room finding of abdominal pain radiating to the back. He does have a history of having had urinary retention. He also has a past history of colon cancer resected in 2015, he is a diabetic who admits he does not take his medication regularly. He also has hypothyroidism, having had his thyroid removed. He states that about month ago he developed severe abdominal pain after a transmission landed on his chest. It felt him as though something was pushed down into his abdomen. He remains tender on his ribs bilaterally. Since the pain began he states he has not been able have a bowel movement and is says that he had not had a bowel movement for 14 days until the day before admission. The past month he has been using Dulcolax gummies Dulcolax syrup and other laxatives. He states that when his bowels do move his only some liquid. He does not see any solid stool at all. He has not had blood in his stools. He has lost about 25 lb in the last couple of months. He states that he eats well and has not been vomiting although his appetite is not always great. Review of Systems Review of Systems: All systems reviewed & are unremarkable except as noted in HPI and below PMFSH Past Medical History Medical History Acute hyperglycemia Acute hyperkalemia Acute hyponatremia Anemia Anxiety Colon cancer COPD (chronic obstructive pulmonary disease) Depression Diabetes Hepatitis B Hepatitis C Hypoth
[2022-05-07 17:00] LABS: Glucose Point of Care 207 mg/dl (65-105)
--- NOTE | 2022-05-07 17:17 | PC.NURSE ---
hospitalist informed telephonically that bs 207 at this time and before breakfast it was 206. inslin as per prescription given and bood sugar drops down to 66 at the time of noon. ordered to hold sliding scale . administer only fixed dose with meal.
[2022-05-07 18:13] LABS: Procalcitonin 0.1 ng/mL
[2022-05-07 18:34] LABS: CRP < 0.5 mg/dL (<1.0)
[2022-05-07] MEDS: INSULIN GLARGINE (*BKC) 100 UNITS/ML 20 UNITS SUB-Q (21:43)
[2022-05-07 22:00] VITALS: BP 126/92; PULSE 75; RESP 18; TEMP 36.4; O2SAT 100
[2022-05-07 22:20] LABS: Glucose Point of Care 160 mg/dl (65-105)
[2022-05-08] MEDS: MORPHINE SULFATE (*CRX) 2 MG/ML INJ 1 MG IV PUSH ×3 (04:46→12:04)
[2022-05-08] MEDS: LEVOTHYROXINE SODIUM 100 MCG TABLET PO (05:57)
[2022-05-08 06:00] VITALS: BP 127/89; PULSE 85; RESP 18; TEMP 36.6; O2SAT 100
[2022-05-08 06:51] LABS: Albumin 3.4 g/dL (3.8-4.8); Alpha 1 Globulin 0.2 g/dL (0.2-0.3); Alpha 2 Globulin 0.6 g/dL (0.5-0.9); Beta 1 Globulin 0.5 g/dL (0.4-0.6); Gamma Globulin 1.2 g/dL (0.8-1.7); Protein, Total 6.2 g/dL (6.1-8.1)
[2022-05-08 07:04] LABS: Hematocrit 36.5 % (42.0-52.0); Mean Corpuscular HGB Conc 35.6 g/dl (32-36); Mean Corpuscular Hemoglobin 29.7 pg (26-34); Mean Corpuscular Volume 83.3 fl (80-100); Mean Platelet Volume 9.5 fl (7.4-10.4); Platelet Count Result 245 k/mm3 (150-375); Red Blood Count 4.38 M/mm3 (4.6-6.20); Red Cell Distribution Width 12.7 % (11.5-14.5); White Blood Count 10.6 K/mm3 (4.5-10.0)
[2022-05-08 07:23] LABS: Alanine Aminotransferase 70 U/L (6-50); Albumin Level 3.6 g/dL (3.5-5.1); Alkaline Phosphatase 78 U/L (38-126); Anion Gap 4 mmol/L (8-16); Aspartate Amino Transferase 58 U/L (17-59); Bilirubin,Total 0.5 mg/dL (0.2-1.3); Blood Urea Nitrogen 15 mg/dL (9-20); Calcium 8.8 mg/dL (8.4-10.2); Carbon Dioxide 32 mmol/L (22-30); Chloride 98 mmol/L (98-107); Estimated CRCL calculation 78 ml/min; Estimated Glomerular Filt Rate > 60; Glucose 212 mg/dL (65-110); Potassium 3.9 mmol/L (3.4-5.0); Sodium 134 mmol/L (137-145)
[2022-05-08 07:56] LABS: Glucose Point of Care 274 mg/dl (65-105)
[2022-05-08] MEDS: GABAPENTIN 300 MG CAPSULE PO ×3 (08:26→16:13)
[2022-05-08] MEDS: clonazePAM (*CRX) 0.5 MG TABLET PO ×3 (08:26→16:13)
[2022-05-08] MEDS: polyethylene glycoL 3350 17 GM POWD.PACK PO (08:26)
[2022-05-08] MEDS: SIMETHICONE 80 MG TAB.CHEW PO ×3 (08:26→16:13)
[2022-05-08] MEDS: FINASTERIDE 5 MG TABLET PO (08:26)
[2022-05-08] MEDS: LOSARTAN POTASSIUM 25 MG TABLET PO (08:26)
[2022-05-08] MEDS: TAMSULOSIN HCL 0.4 MG CAPSULE PO (08:26)
[2022-05-08] MEDS: INSULIN ASPART (*BKC) 100 UNITS/ML SUB-Q ×2 (08:27)
[2022-05-08] MEDS: DOCUSATE SODIUM 100 MG CAPSULE PO (08:27)
[2022-05-08 11:57] LABS: Glucose Point of Care 86 mg/dl (65-105)
[2022-05-08] MEDS: BISACODYL 10 MG SUPPOSITORY RECTAL (12:04)
[2022-05-08 14:00] VITALS: BP 114/67; PULSE 78; RESP 20; TEMP 36.2; O2SAT 100
[2022-05-08] MEDS: HYDROcodone/acetaminophen (*CRX) 5-325 MG TABLET 1 TAB PO (15:02)
--- NOTE | 2022-05-08 15:37 | PM.IMPN ---
Progress Note: A&P Assessment and Plan (1) Abdominal pain, lower: Code(s): R10.30 - Lower abdominal pain, unspecified Status: Acute Assessment and Plan: Patient complains of severe lower abdominal pain. CT of the abdomen/ pelvis revealed only small bilateral nonobstructing kidney stones, no dilated loops of bowel, no lymphadenopathy or free fluid. nonobstructing stones not likely to be etiology for pain. No additional findings to explain symptoms on CT. Patient does complain of constipation, however no evidence on imaging. Continue with bowel regimen. KUB without obstruction or ileus. Lipase within normal limits. appreciate gastroenterology consultation. Labs pending for evaluation of IBD. Will begin dicyclomine for hopeful symptomatic improvement (2) Hydronephrosis: Code(s): N13.30 - Unspecified hydronephrosis Status: Acute Assessment and Plan: renal ultrasound revealed moderate left hydronephrosis and moderate atrophy of left kidney. Appreciate urology consultation. Continue to monitor postvoid residual. No evidence of ongoing retention (3) Diabetes: Code(s): E11.9 - Type 2 diabetes mellitus without complications Status: Acute Assessment and Plan: Poorly controlled. A1c is 13.7. Suspect patient is poorly compliant to medication regimen, though he states he takes detemir twice a day at home. Continue Accu-Cheks, sliding scale insulin, and hypoglycemic protocol. NovoLog 5 units scheduled with meals and Lantus 20 units q.h.s.. Continue home Januvia. Consult to religious educator greatly appreciated. (4) Acute hyponatremia: Code(s): E87.1 - Hypo-osmolality and hyponatremia Status: Acute Assessment and Plan: Resolved at appropriate rate. Sodium 134 today. Continue to monitor (5) BPH (benign prostatic hyperplasia): Code(s): N40.0 - Benign prostatic hyperplasia without lower urinary tract symptoms Status: Acute Assessment and Plan: Appreciate urology consultation. Continue home tamsulosin and finasteride. Monitor postvoid residual. (6) Kidney stones: Code(s): N20.0 - Calculus of kidney Status: Acute Assessment and Plan: Nonobstructing stones noted on CT, no intervention required (7) Hypothyroid: Qualifiers: Hypothyroidism type: unspecified Qualified Code(s): E03.9 - Hypothyroidism, unspecified Code(s): E03.9 - Hypothyroidism, unspecified Status: Chronic Assessment and Plan: TSH markedly elevated at 95.8 with T4 0.37. Levothyroxine initiated at 100 mcg daily. Will need recheck in 6 weeks as an outpatient with up titration as needed (8) Hypertension: Code(s): I10 - Essential (primary) hypertension Status: Acute Assessment and Plan: blood pressure is stable. Continue home losartan. HCTZ on hold given hyponatremia (9) Tobacco dependence: Code(s): F17.200 - Nicotine dependence, unspecified, uncomplicated Status: Acute Assessment and Plan: continue to encourage smoking cessation (10) Colon cancer: Code(s): C18.9 - Malignant neoplasm of colon, unspecified Status: Acute Assessment and Plan: Patient reports no recent follow-up. Has not been evaluated by Oncology in quite some time and in fact cannot recall the name of his oncologist. CEA mildly elevated. Patient will need outpatient oncology follow-up and colonoscopy Subjective Date/time seen: 05/08/22 15:37 Interval history: Date of service: 05/07/2022 Patient is seen in follow-up for abdominal pain and urinary retention. patient is tired today, states he does not want to wake up to have conversation. He continues to endorse persistent abdominal pain with no improvement. He was able to tolerate his diet today. Still has not had a bowel movement but does endorse passing flatus. Does not provide any additional hist
[2022-05-08] MEDS: DICYCLOMINE HCL 10 MG CAPSULE 20 MG PO (16:13)
[2022-05-08 16:49] LABS: Glucose Point of Care 105 mg/dl (65-105)
--- NOTE | 2022-05-08 20:19 | PC.NURSE ---
315-01 came to front nurses stating his roommate is smoking a cigarette. 315-01 was moved to [id number]-. I went and spoke with patient about this situation. Patient stated he was not smoking. I asked if I could search his belongings. Patient stated that was fine. We both went through his belongings. I found multiple lighters, 3 packs of cigarettes, and pills that were not taken. I took these items and locked them up. I discussed with the patient that we do not smoke inside the hospital. Patient stated he was sorry, but would like to leave. I advised him to stay, but patient was making phone calls at this time for someone to pick him up. Patient decided to stay for about an hour then wanted to leave AMA because his girlfriend was here. I told his night RN, Tg to go have him sign the AMA form, discontinue his IV access, and give him his belongings back, plus home medications that were previously locked up. Patient walked out @ 2009. RN then stated to me she did not take his IV out because it was just shift change and she did not assess him. I attempted to call both the patient and girlfriend, but no answers. Leather Splitter notified.
--- NOTE | 2022-05-09 02:40 | PC.NURSE ---
roommate notified staff of pt smoking in bed. Staff took smokes and heavy equipment rental associate away from pt. Day shift charge received michael from pt girlfriend that she is picking pt up downstairs. Pt came into [facility] in clothes, wearing jacket carring multiple bags and blanket. Gave pt his medications that were at thr nursing station , along with smokes and heavy equipment rental associate Pt signed ama form D/'d 2009 Called hospitalist building performance consultant several times unable to reach. Nursing supervisor newspaper deliveries away of AMA discharge.
[2022-05-13 12:21] LABS: ANCA Screen Negative (Negative); Myeloperoxidase Ab <1.0 AI (<1.0); Proteinase-3 Ab <1.0 AI (<1.0); S cerevisiae Ab (IgA) 12.6 U (<=20.0); S cerevisiae Ab (IgG) 22.9 U (<=20.0)
[2022-05-13 12:28] LABS: Creatinine, Random Urine 51 mg/dL (20-320); Total Protein/Creatinine Ratio 216 mg/g creat (25-148)
== END 2022-05-08 20:10 | disposition left against medical advice (07) | DRG 251 ==
LOC: ANHED 05-04 05:36 → ANH3MEDSUR 05-04 05:57
PROVIDERS: Internal Medicine Gastroenterology; Internal Medicine Nephrology; Nurse Practitioner; Admitting Provider Student in an Organized Health Care Education/Training Program; Emergency Provider Emergency Medicine; Visit Provider Physician Assistant
DX: R10.30 Lower abdominal pain, unspecified (principal); E11.65 Type 2 diabetes mellitus with hyperglycemia; L40.50 Arthropathic psoriasis, unspecified; E87.1 Hypo-osmolality and hyponatremia; E03.9 Hypothyroidism, unspecified; E11.9 Type 2 diabetes mellitus without complications; N20.0 Calculus of kidney; N26.1 Atrophy of kidney (terminal); N13.30 Unspecified hydronephrosis; N40.1 Benign prostatic hyperplasia with lower urinary tract symptoms; R33.8 Other retention of urine; F32.A Depression, unspecified; F19.10 Other psychoactive substance abuse, uncomplicated; F41.9 Anxiety disorder, unspecified; F17.210 Nicotine dependence, cigarettes, uncomplicated; Z20.822 Contact with and (suspected) exposure to COVID-19; Z85.038 Personal history of other malignant neoplasm of large intestine; Z86.19 Personal history of other infectious and parasitic diseases; Z79.4 Long term (current) use of insulin; Z90.49 Acquired absence of other specified parts of digestive tract; Z91.14 Patient's other noncompliance with medication regimen
CPT/HCPCS: 36415; 74018; 74177; 76775; 80048; 80053; 80074; 80076; 80307; 81001; 82378; 82533; 82570; 82948; 83036; 83605; 83615; 83690; 83735; 83883; 83935; 84145; 84155; 84156; 84165; 84166; 84300; 84439; 84443; 84540; 85025; 85027; 86036; 86140; 86334; 86335; 86671; 87522; 87636; 96360; 96361; 96374; 96375; 96376; 99285; A9270; G0378; G0379; J1815; J1885; J2270; J7030; Q9967

== ENCOUNTER 2023-05-22 11:13 | Emergency (ER) | payer OTHER, SELFPAY ==
--- NOTE | 2023-05-22 11:30 | PC.NURSE ---
Pt left AMA, does not want to be seen.
== END 2023-05-22 11:57 | disposition left against medical advice (07) ==
LOC: ANHED 11:38
DX: R07.81 Pleurodynia (principal)
CPT/HCPCS: 99199